=== PATIENT | female | born 1995 | race African-American/Black ===

== ENCOUNTER 2016-08-31 19:28 | Emergency (ER) | payer OTHER ==
[~2016-08-31] VITALS: Ht 162.6 cm; Wt 62.6 kg
[~2016-08-31 19:28] MED LIST: ALBU8.5H6 IH; BUPR75TA5 PO; LISD20CA3 PO; NALT50TA15 PO; QUET400T4 PO; RISP1TAB43 PO
[2016-08-31 19:49] VITALS: BP 111/68
--- NOTE | 2016-08-31 20:52 | PHYS DOC ---
Past Medical History Past Medical History: Anxiety, Depression, Other Additional Past Medical Histor: ADHD, Impulse Control,takes med for sleep Past Surgical History: No Surgical History Alcohol Use: None Drug Use: None Adult General Chief Complaint Chief Complaint: VAGINAL BLEEDING HPI HPI Patient is a 21 year old female who presents with irregular menses. Patient reports she had taken OCPs for less than a month, which she stopped in July. Since then she has not had a period. She presents today with c/o vaginal spotting, mild lower abdominal cramping, nausea. She has been having symptoms for a few days with no clear inciting or mitigating factors. She has not taken anything for symptoms prior to coming to ED. No other acute complaints. She is . She took a test at home that was negative. Review of Systems Review of Systems Constitutional: Denies fever or chills Eyes: Denies change in visual acuity or eye pain HENT: Denies nasal congestion or sore throat Respiratory: Denies cough or shortness of breath Cardiovascular: Denies chest pain GI: Lower abdominal cramping, nausea. Denies bloody stools or diarrhea : Vaginal spotting. Denies dysuria or hematuria Musculoskeletal: Denies back pain or joint pain Integument: Denies rash or skin lesions Neurologic: Denies headache, focal weakness or sensory changes Current Medications Current Medications Current Medications Medications (Trade) Dose Ordered Sig/Danny Start Time Stop Time Status Last Admin Dose Admin Ondansetron HCl (Zofran Odt) 4 mg 1X ONCE 08/31/16 21:00 08/31/16 21:01 DC 08/31/16 21:13 4 MG Allergies Allergies Allergies Coded Allergies Type Severity Reaction Last Updated Verified No Known Drug Allergies 11/02/13 No Physical Exam Physical Exam Constitutional: Well developed, well nourished, no acute distress, non-toxic appearance HENT: Normocephalic, atraumatic, bilateral external ears normal Eyes: EOMI, conjunctiva normal, no discharge Neck: Normal range of motion, no stridor Cardiovascular: Heart rate normal, regular rhythm, no murmur Lungs & Thorax: Bilateral breath sounds clear to auscultation Abdomen: Bowel sounds normal, soft, non-distended, no TTP Pelvic: Small amount brown blood in vault, no discharge, no CMT or adnexal tenderness Skin: Warm, dry, no erythema, no rash Extremities: No obvious deformity, no edema Neurologic: Alert and oriented X 3, no gross deficits noted Current Patient Data Lab Values Laboratory Tests Test 08/31/16 19:35 Urine Collection Type Unknown Urine Color Yellow Urine Clarity Clear Urine pH 6.5 Urine Specific [place] 1.025 Urine Protein Negativemg/dL (NEG-TRACE) Urine Glucose (UA) Negativemg/dL (NEG) Urine Ketones (Stick) Negativemg/dL (NEG) Urine Blood Large (NEG) Urine Nitrite Negative (NEG) Urine Bilirubin Negative (NEG) Urine Urobilinogen Dipstick 0.2mg/dL (0.2 mg/dL) Urine Leukocyte Esterase Trace (NEG) Urine RBC Occ/HPF (0-2) Urine WBC 1-4/HPF (0-4) Urine Squamous Epithelial Cells Mod/LPF Urine Bacteria Few/HPF (0-FEW) Urine Mucus Mod/LPF Urine Test Negative (NEG) Microbiology 08/31/16 Wet Prep - Final, Complete Microbiology 08/31/16 Wet Prep - Final, Complete EKG EKG [] Radiology/Procedures Radiology/Procedures [] Course & Med Decision Making Course & Med Decision Making Pertinent Labs and Imaging studies reviewed. (See chart for details) Patient is 21 year old female who presents wtith vaginal spotting, lower abdominal cramping, nausea. Likely menstrual cycle delayed due to relatively recent OCP use. No concerning findings on physical exam. UA, urine preg ordered. Pelvic swabs sent to lab. Urine preg negative. UA not indicative of UTI. Swabs from pelvic unremarkable. Discussed results with patient, as well as need to follow up with ObGyn. Patient discharged home with instructions for follow up, return precautions. Dragon Disclaimer Dragon Disclaimer This electronic medical record was generated, in whole or in part, using a voice recognition dictation system. Departure Departure Impression: Primary Impression: Irregular menstrual cycle Disposition: HOME, SELF-CARE Condition: STABLE Referrals: NO PCP (PCP) Patient Instructions: Abnormal Uterine Bleeding Additional Instructions: Thank you for allowing us to provide care today in the Emergency Department. Schedule a follow up appointment with your ObGyn. Return promptly to the Emergency Department if you develop any new or concerning symptoms. CARLEY PENNY MD Aug 31, 2016 20:52
[2016-08-31] MEDS ORDERED: ONDANSETRON ODT 4 MG TAB.RAPDIS PO ONE (21:00)
[2016-08-31 21:26] LABS: NEG OBC UR NEG; POS OBC UR POS
[2016-08-31 21:29] LABS: BILIRUBIN,URINE NEGATIVE (NEG); GLUCOSE,URINE NEGATIVE (NEG); NITRITE,URINE NEGATIVE (NEG); PH,URINE 6.5; PROTEIN,URINE NEGATIVE (NEG-TRACE); UROBILINOGEN,URINE 0.2 mg/dL (0.2 mg/dL)
[2016-08-31 21:34] LABS: BACTERIA,URINE FEW /HPF (0-FEW); RBC,URINE OCC /HPF (0-2); SQUAMOUS EPITHELIAL CELL,UR MOD /LPF
== END 2016-08-31 22:25 | disposition home or self-care (01) ==
LOC: ER 19:28
DX: N92.6 Irregular menstruation, unspecified (principal); F32.9 Major depressive disorder, single episode, unspecified; F90.9 Attention-deficit hyperactivity disorder, unspecified type; F41.9 Anxiety disorder, unspecified; Z79.899 Other long term (current) drug therapy
CPT/HCPCS: 81001; 81025; 87086; 99284; Q0111; Q0162; 87491; 87591

== ENCOUNTER 2017-01-13 19:10 | Observation (INO) | payer OTHER ==
[~2017-01-13 19:10] MED LIST changes: -LISD20CA3 PO; +LISD20CA4 PO
[2017-01-13 19:41] LABS: BILIRUBIN,URINE NEGATIVE (NEG); GLUCOSE,URINE NEGATIVE (NEG); NITRITE,URINE NEGATIVE (NEG); PH,URINE 5.5; PROTEIN,URINE NEGATIVE (NEG-TRACE); UROBILINOGEN,URINE 0.2 mg/dL (0.2 mg/dL)
[2017-01-13 19:45] LABS: BARBITURATES NEG (NEG); BENZODIAZEPINES NEG (NEG); CANNABINOIDS POS (NEG); COCAINE NEG (NEG); METHADONE NEG (NEG); OPIATES NEG (NEG); PHENCYCLIDINE NEG (NEG)
[2017-01-13 20:08] LABS: BACTERIA,URINE FEW /HPF (0-FEW); RBC,URINE 0 /HPF (0-2); SQUAMOUS EPITHELIAL CELL,UR FEW /LPF; WBC,URINE OCC /HPF (0-4)
== END 2017-01-13 20:48 | disposition home or self-care (01) ==
LOC: 3 SO LND 19:10
PROVIDERS: ADMIT Obstetrics & Gynecology; ATTEND Obstetrics & Gynecology
DX: O26.852 Spotting complicating pregnancy, second trimester (principal); O26.892 Other specified pregnancy related conditions, second trimester; R10.9 Unspecified abdominal pain; Z3A.19 19 weeks gestation of pregnancy
CPT/HCPCS: 81001; 87086; G0378; G0379; G0481